=== PATIENT | female | born 1945 | race Caucasian/White ===

== ENCOUNTER 2017-08-05 09:45 | Inpatient (IN) | payer OTHER ==
[~2017-08-05] VITALS: Ht 157.5 cm; Wt 54.4 kg
[~2017-08-05 09:45] MED LIST: TUSSI-PRES LIQ120 ML PO; ZITHROMAX TRI-500 MG PO
[2017-08-10] MEDS ORDERED: LOSARTAN-HCTZ1 EAC1 PO (11:12)
[2017-08-10] MEDS ORDERED: TOPROL XL50 M1 PO (11:13)
== END 2017-08-19 15:43 | disposition home or self-care (01) | DRG 331 ==
LOC: SURG 08-16 05:48 → O/R 08-16 05:48 → SURG 08-16 11:38 → SURH 08-16 12:45 → SURG 08-19 15:43
PROVIDERS: Colon & Rectal Surgery
PROC: 07TC4ZZ Resection of Pelvis Lymphatic, Percutaneous Endoscopic Approach (ICD-10-PCS; 2017-08-16)
PROC: 0DBU4ZZ Excision of Omentum, Percutaneous Endoscopic Approach (ICD-10-PCS; 2017-08-16)
PROC: 0DTF4ZZ Resection of Right Large Intestine, Percutaneous Endoscopic Approach (ICD-10-PCS; principal; 2017-08-16 13:30)
DX: D12.0 Benign neoplasm of cecum (principal); I11.9 Hypertensive heart disease without heart failure; F41.0 Panic disorder [episodic paroxysmal anxiety]; R73.01 Impaired fasting glucose

== ENCOUNTER 2018-09-22 09:32 | Day surgery (SDC) | payer OTHER ==
[~2018-09-22 09:32] MED LIST changes: +LOSARTAN-HCTZ1 EAC1 PO; +TOPROL XL50 M1 PO
== END 2018-09-22 12:55 | disposition home or self-care (01) ==
LOC: AMB-ENDOS 09:32
DX: K64.1 Second degree hemorrhoids (principal)